=== PATIENT | male | born 1955 | race Caucasian/White ===

== ENCOUNTER 2017-10-05 09:27 | Day surgery (SDC) | payer BC ==
[~2017-10-05] VITALS: Ht 180.3 cm; Wt 95.2 kg
[~2017-10-05 09:27] MED LIST: ASPIR-LOW81 MG PO; COENZYME Q10100 M1 PO; PRAVASTATIN SOD80 MG PO; SLO-NIACIN500 MG PO; VITAMIN D31000 UNI1 PO; ZINC50 MG PO
== END 2017-10-05 12:14 | disposition home or self-care (01) ==
LOC: DS 09:27 → OPS 09:27 → DS 10:45 → OPS 10:45
PROVIDERS: Ophthalmology
PROC: 08RJ3JZ Replacement of Right Lens with Synthetic Substitute, Percutaneous Approach (ICD-10-PCS; principal; 2017-10-05 10:45)
DX: H25.011 Cortical age-related cataract, right eye (principal); E78.00 Pure hypercholesterolemia, unspecified; Z98.890 Other specified postprocedural states; Z79.82 Long term (current) use of aspirin; Z79.899 Other long term (current) drug therapy